=== PATIENT | male | born 1955 | race African-American/Black ===

== ENCOUNTER 2017-02-17 15:50 | Inpatient (IN) | payer MEDICAID ==
[~2017-02-17] VITALS: Ht 175.3 cm; Wt 66.7 kg
[~2017-02-17 15:50] MED LIST: ADVAIR DISKUS 51 AER INH; ALBUTEROL SULFAT0.51 NEB; ALBUTEROL SULFAT3 ML NEB; APAP/HYDROCODON1 T13 PO; ASPIR 8181 MG PO; ATI1 NG; ATI1 PO; ATROPINE; BAY PO; BG MC; CARVEDILOL12.5 M1 PO; CLINDAMYCIN HC150 MG PO; COL100 PO; DEXPF IV; FOL1 PO; HUMULIN R100 U/1 M1 SC; IPRATROPIUM BROM3 M2 HHN; LAC PO; LEVAQUIN500 MG PO; LEVOFLOXACIN500 M1 PO; MEDDP PO; MOR2I IV; NAPHAZOLINE HCL15 ML OP; NIFEDIPINE ER60 MG PO; NIT0.4 SL; NOR5 PO; PREDNISOLONE ACE5 ML OP; PREOS OU; PRI20 PO; PULMICORT0.5 MG/2 M IH; PULMICORT180 MCG/Ac INH; SOL40I IV; SPIRIVA18 MC1 INH; TEN25 PO; THI100 PO; TYL325 PO; VENTOLIN H0.09 MG/A1 IH; VITAMIN D2000 I2 PO; VITAMIN D32000 I2 PO; ZIT250 PO; ZOC10 PO; ZOCOR20 MG PO; ZOFI IV; [UNRECOGNIZED DRUG - CODE] OU; [UNRECOGNIZED DRUG - CODE] PO; [UNRECOGNIZED DRUG - OTHER]; [UNRECOGNIZED DRUG - OTHER] OP; [UNRECOGNIZED DRUG - OTHER] OU
[2017-02-17 16:28] VITALS: BP 151/96
[2017-02-17 16:38] LABS: BASOPHIL % 0.5 % (0-2); PLATELET COUNT 333 x10^3mcL (130-400)
[2017-02-17 16:42] LABS: RED CELL DISTRIBUTION WIDTH 15.6 % (11.5-14.5)
[2017-02-17 16:55] LABS: microscopic required? YES; urine erythrocyte NEGATIVE (NEGATIVE)
[2017-02-17 17:02] LABS: CALCIUM 8.4 mg/dL (8.5-10.1); CARBON DIOXIDE 23.1 mmol/L (21-32); CHLORIDE SERUM 106 mmol/L (98-107); GFR1 > 60 mL/min; GLUCOSE SERUM 169 mg/dL (74-106); POTASSIUM SERUM 4.3 mmol/L (3.5-5.1); SODIUM SERUM 140 mmol/L (136-145)
[2017-02-17 17:07] LABS: ALBUMIN 3.4 g/dL (3.4-5.0); ALKALINE PHOSPHATASE 54 U/L (46-116); ALT/SGPT 27 U/L (16-63); AST/SGOT 25 U/L (15-37); BILIRUBIN TOTAL 0.2 mg/dL (0.20-1.00); CHOLESTEROL 137 mg/dL (<200); HDL CHOLESTEROL 40 mg/dL (40-60); TOTAL PROTEIN, SERUM 6.9 g/dL (6.4-8.2)
[2017-02-17] MEDS ORDERED: PRO30 PO (17:35)
[2017-02-17 18:42] LABS: AMPHETAMINE QUAL UR NONE DETECTED (NEG <=1000)
[2017-02-17 18:50] LABS: PHOSPHOROUS 6.6 mg/dL (2.5-4.9)
[2017-02-17 18:54] LABS: CHOLESTEROL/HDL RATIO 3.6; MAGNESIUM 2.2 mg/dL (1.8-2.4)
[2017-02-17 18:55] LABS: T3 TOTAL 0.98 ng/mL
[2017-02-17 18:56] LABS: FREE T4 0.85 ng/dL (0.76-1.46); FREE THYROXINE INDEX 2.1 ug/dL (1.4-4.5); T4(THYROXINE) 6.8 ug/dL (4.7-13.3)
[2017-02-17 19:17] VITALS: BP 153/84
[2017-02-17 21:20] VITALS: BP 146/83
[2017-02-17 21:25] VITALS: BP 146/83
[2017-02-17 23:20] VITALS: BP 115/70
[2017-02-18] VITALS (18 sets, daily range): BP systolic 121–174; BP diastolic 71–83
[2017-02-18 05:42] LABS: BASOPHIL % 0.6 % (0-2); CALCIUM 8.8 mg/dL (8.5-10.1); CARBON DIOXIDE 24.4 mmol/L (21-32); CHLORIDE SERUM 111 mmol/L (98-107); CREATININE SERUM 0.7 mg/dL (0.7-1.3); GFR1 > 60 mL/min; GLUCOSE SERUM 181 mg/dL (74-106); PLATELET COUNT 327 x10^3mcL (130-400); POTASSIUM SERUM 3.8 mmol/L (3.5-5.1); RED CELL DISTRIBUTION WIDTH 15.6 % (11.5-14.5); SODIUM SERUM 144 mmol/L (136-145)
[2017-02-18] MEDS ORDERED: VITAMIN D32000 I2 PO (09:59)
[2017-02-18] MEDS ORDERED: NAPHCON A OD (10:01)
[2017-02-18] MEDS ORDERED: PRED FORTE1 ML OD (10:01)
[2017-02-18] MEDS ORDERED: STIOLTO RESPIMA1 SPR IH (10:02)
[2017-02-18] MEDS ORDERED: ROBITUSSIN COUG1 SGL PO (10:06)
[2017-02-19] VITALS (23 sets, daily range): BP systolic 102–176; BP diastolic 59–101
[2017-02-19 05:44] LABS: PLATELET COUNT 308 x10^3mcL (130-400)
[2017-02-19 05:59] LABS: RED CELL DISTRIBUTION WIDTH 14.8 % (11.5-14.5)
[2017-02-19 06:00] LABS: CALCIUM 8.6 mg/dL (8.5-10.1); CARBON DIOXIDE 24.5 mmol/L (21-32); CHLORIDE SERUM 113 mmol/L (98-107); CREATININE SERUM 0.8 mg/dL (0.7-1.3); GFR1 > 60 mL/min; GLUCOSE SERUM 192 mg/dL (74-106); MAGNESIUM 2.5 mg/dL (1.8-2.4); PHOSPHOROUS 3.5 mg/dL (2.5-4.9); POTASSIUM SERUM 3.5 mmol/L (3.5-5.1); SODIUM SERUM 146 mmol/L (136-145)
[2017-02-19 06:24] LABS: BAND NEUTROPHIL 3 % (0-10); METAMYELOCTE 2 % (0-2); MONOCYTE 4 % (0-7); SEGMENTED NEUTROPHILS 84 % (37-75)
[2017-02-19 06:25] LABS: PLATELET MORPHOLOGY FEW LARGE PLATELETS; rbc morphology (normal/abnorm) ABNORMAL (NORMAL)
[2017-02-20] VITALS (13 sets, daily range): BP systolic 107–167; BP diastolic 60–90
[2017-02-20 05:53] LABS: PLATELET COUNT 300 x10^3mcL (130-400)
[2017-02-20 05:55] LABS: BASOPHIL % 0 % (0-2); RED CELL DISTRIBUTION WIDTH 15.8 % (11.5-14.5)
[2017-02-20 05:59] LABS: CALCIUM 8.2 mg/dL (8.5-10.1); CARBON DIOXIDE 27.2 mmol/L (21-32); CHLORIDE SERUM 112 mmol/L (98-107); CREATININE SERUM 0.7 mg/dL (0.7-1.3); GFR1 > 60 mL/min; GLUCOSE SERUM 189 mg/dL (74-106); MAGNESIUM 2.4 mg/dL (1.8-2.4); PHOSPHOROUS 4.2 mg/dL (2.5-4.9); POTASSIUM SERUM 3.4 mmol/L (3.5-5.1); SODIUM SERUM 147 mmol/L (136-145)
[2017-02-21 06:08] VITALS: BP 132/70
[2017-02-21 06:21] LABS: PLATELET COUNT 317 x10^3mcL (130-400)
[2017-02-21 06:40] LABS: CALCIUM 9.5 mg/dL (8.5-10.1); CARBON DIOXIDE 29.1 mmol/L (21-32); CHLORIDE SERUM 107 mmol/L (98-107); CREATININE SERUM 0.8 mg/dL (0.7-1.3); GFR1 > 60 mL/min; GLUCOSE SERUM 174 mg/dL (74-106); MAGNESIUM 2.6 mg/dL (1.8-2.4); PHOSPHOROUS 4.6 mg/dL (2.5-4.9); POTASSIUM SERUM 4.3 mmol/L (3.5-5.1); SODIUM SERUM 146 mmol/L (136-145)
[2017-02-21 07:07] LABS: RED CELL DISTRIBUTION WIDTH 15.6 % (11.5-14.5)
[2017-02-21 08:30] VITALS: BP 133/69
[2017-02-21 09:33] LABS: BAND NEUTROPHIL 2 % (0-10); MONOCYTE 3 % (0-7); SEGMENTED NEUTROPHILS 84 % (37-75)
[2017-02-21 09:34] LABS: rbc morphology (normal/abnorm) NORMAL (NORMAL)
[2017-02-21 09:35] LABS: PLATELET MORPHOLOGY FEW LARGE PLATELETS
[2017-02-21 12:58] VITALS: BP 112/67
[2017-02-21 17:36] VITALS: BP 139/68
[2017-02-21 20:26] VITALS: BP 156/82
[2017-02-22 05:49] VITALS: BP 136/67
[2017-02-22 06:21] LABS: CALCIUM 9.7 mg/dL (8.5-10.1); CARBON DIOXIDE 28.5 mmol/L (21-32); CHLORIDE SERUM 105 mmol/L (98-107); CREATININE SERUM 0.9 mg/dL (0.7-1.3); GFR1 > 60 mL/min; GLUCOSE SERUM 166 mg/dL (74-106); SODIUM SERUM 144 mmol/L (136-145)
[2017-02-22 06:39] LABS: PLATELET COUNT 334 x10^3mcL (130-400)
[2017-02-22 07:10] LABS: RED CELL DISTRIBUTION WIDTH 15.9 % (11.5-14.5)
[2017-02-22 09:30] VITALS: BP 113/62
[2017-02-22 11:55] LABS: ATYPICAL LYMPH 1 %; BAND NEUTROPHIL 2 % (0-10); MONOCYTE 4 % (0-7); SEGMENTED NEUTROPHILS 88 % (37-75); rbc morphology (normal/abnorm) ABNORMAL (NORMAL)
[2017-02-22 11:56] LABS: PLATELET MORPHOLOGY GIANT PLATELET SEEN
[2017-02-22 17:19] VITALS: BP 139/73
[2017-02-22 21:46] VITALS: BP 102/72
[2017-02-23 06:36] VITALS: BP 130/76
[2017-02-23 10:17] VITALS: BP 133/65
[2017-02-23 17:21] VITALS: BP 136/78
[2017-02-23 21:53] VITALS: BP 110/68
[2017-02-24 06:07] VITALS: BP 120/62
[2017-02-24 06:21] LABS: PLATELET COUNT 311 x10^3mcL (130-400)
[2017-02-24 06:22] LABS: RED CELL DISTRIBUTION WIDTH 15.5 % (11.5-14.5)
[2017-02-24 06:43] LABS: CALCIUM 9.3 mg/dL (8.5-10.1); CARBON DIOXIDE 29.1 mmol/L (21-32); CHLORIDE SERUM 106 mmol/L (98-107); CREATININE SERUM 0.9 mg/dL (0.7-1.3); GFR1 > 60 mL/min; GLUCOSE SERUM 185 mg/dL (74-106); MAGNESIUM 2.6 mg/dL (1.8-2.4); PHOSPHOROUS 4.7 mg/dL (2.5-4.9); POTASSIUM SERUM 4.8 mmol/L (3.5-5.1); SODIUM SERUM 142 mmol/L (136-145)
[2017-02-24 07:57] LABS: ATYPICAL LYMPH 2 %; BAND NEUTROPHIL 0 % (0-10); BASOPHIL 0 % (0-2); MONOCYTE 4 % (0-7); SEGMENTED NEUTROPHILS 87 % (37-75)
[2017-02-24 07:58] LABS: PLATELET MORPHOLOGY PLATELETS INCREASED; rbc morphology (normal/abnorm) NORMAL (NORMAL)
[2017-02-24 08:30] VITALS: BP 146/72
[2017-02-24 12:52] VITALS: BP 127/68
[2017-02-24 13:10] VITALS: BP 146/72
[2017-02-24] MEDS ORDERED: LEVAQUIN750 MG PO (13:13)
[2017-02-24] MEDS ORDERED: LAC PO (13:13)
[2017-02-24] MEDS ORDERED: METFORMIN HCL500 MG PO (13:16)
[2017-02-24] MEDS ORDERED: SYNTHROID25 MCG PO (13:16)
[2017-02-24] MEDS ORDERED: MEDDP PO (13:17)
[2017-02-24 17:29] VITALS: BP 136/78
== END 2017-02-24 18:50 | disposition home health service (06) | DRG 137 ==
LOC: ED 15:50 → DU 18:11 → IC 18:11 → MU 18:11 → IC 18:25 → DU 02-20 23:58 → MU 02-21 16:38
PROVIDERS: Emergency Medicine; Family Medicine; ADMIT Family Medicine
PROC: 5A1945Z Respiratory Ventilation, 24-96 Consecutive Hours (ICD-10-PCS; principal; 2017-02-17)
PROC: 05HM33Z Insertion of Infusion Device into Right Internal Jugular Vein, Percutaneous Approach (ICD-10-PCS; 2017-02-17)
PROC: B543ZZA Ultrasonography of Right Jugular Veins, Guidance (ICD-10-PCS; 2017-02-17)
DX: J69.0 Pneumonitis due to inhalation of food and vomit (principal); N17.0 Acute kidney failure with tubular necrosis; J96.01 Acute respiratory failure with hypoxia; J96.02 Acute respiratory failure with hypercapnia; G72.81 Critical illness myopathy; G93.41 Metabolic encephalopathy; E87.2 Acidosis; D68.69 Other thrombophilia; E87.0 Hyperosmolality and hypernatremia; E11.51 Type 2 diabetes mellitus with diabetic peripheral angiopathy without gangrene; J44.1 Chronic obstructive pulmonary disease with (acute) exacerbation; E11.65 Type 2 diabetes mellitus with hyperglycemia; F43.22 Adjustment disorder with anxiety; K21.9 Gastro-esophageal reflux disease without esophagitis; I10 Essential (primary) hypertension; E83.51 Hypocalcemia; E78.5 Hyperlipidemia, unspecified; H54.0 Blindness, both eyes; E83.39 Other disorders of phosphorus metabolism; E03.9 Hypothyroidism, unspecified; Z79.82 Long term (current) use of aspirin; Z87.891 Personal history of nicotine dependence; Z79.51 Long term (current) use of inhaled steroids
CPT/HCPCS: 36556; 36600; 80307; 82962; 83880; 84439; 94150; 97110-GP; 97116-GP; 97530-GP; A4628; J1642; J1644; J1815; J1956; J2060; J2543; J2704; J2920; J2930; J3480; J3490; J7030; J7040; J7512; J7613; J7620; J7626; J7644; Q0092

== ENCOUNTER 2017-04-08 02:14 | Inpatient (IN) | payer MEDICAID ==
[~2017-04-08] VITALS: Ht 175.3 cm; Wt 65.0 kg
[~2017-04-08 02:14] MED LIST changes: +LEVAQUIN750 MG PO; +METFORMIN HCL500 MG PO; +NAPHCON A OD; +PRED FORTE1 ML OD; +PRO30 PO; +ROBITUSSIN COUG1 SGL PO; +STIOLTO RESPIMA1 SPR IH; +SYNTHROID25 MCG PO
--- NOTE | 2017-04-08 02:38 | NUR ---
PT TO ED WITH C/O SOB SINCE YESTERDAY. PER PT , PT WAS FEELING SOB YESTERDAY BUT FELT BETTER AND EARLIER IN THE EVENING BEGAN FEELING SOB AGAIN AND WORSENED THROUGHOUT THE EVENING AND CAME TO ED. PER PT, PT HAD BREATHING EXCERCISES DONE EARLIER TODAY. PT A&OX4,NO ACUTE DISTRESS NOTED, RESP EVEN AND LABORED AT THIS TIME WITH AUDITORY WHEEZING. PT STATES TO UNPRODUCTIVE COUGH. PT PLACED ON FULL CM, AT THE BEDSIDE, WILL CONTINUE TO MONITOR.
[2017-04-08 03:04] LABS: BASOPHIL % 0.6 % (0-2)
[2017-04-08 03:15] LABS: CALCIUM 9.5 mg/dL (8.5-10.1); CARBON DIOXIDE 21.7 mmol/L (21-32); CHLORIDE SERUM 108 mmol/L (98-107); CREATININE SERUM 0.9 mg/dL (0.7-1.3); GFR1 > 60 mL/min; GLUCOSE SERUM 111 mg/dL (74-106); POTASSIUM SERUM 3.7 mmol/L (3.5-5.1); SODIUM SERUM 143 mmol/L (136-145)
[2017-04-08 03:21] LABS: PLATELET COUNT 431 x10^3mcL (130-400)
[2017-04-08 03:26] LABS: ALBUMIN 3.9 g/dL (3.4-5.0); ALKALINE PHOSPHATASE 56 U/L (46-116); ALT/SGPT 18 U/L (16-63); AST/SGOT 15 U/L (15-37); BILIRUBIN TOTAL 0.33 mg/dL (0.20-1.00); TOTAL PROTEIN, SERUM 7.8 g/dL (6.4-8.2)
[2017-04-08 03:28] LABS: CK-MB 0.8 ng/mL (0-3.6)
[2017-04-08] MEDS ORDERED: ISOPTO ATROPINE5 ML (03:45)
[2017-04-08] MEDS ORDERED: [UNRECOGNIZED DRUG - OTHER] (03:46)
--- NOTE | 2017-04-08 03:51 | NUR ---
RT AT THE BEDSIDE.
--- NOTE | 2017-04-08 05:00 | NUR ---
PT AND PT PROVIDED WITH WARM BLANKETS AND PILLOWS FOR COMFORT WHILE WAITING TO BE ADMITTED AT THIS TIME. PT A&OX4,NO ACUTE DISTRESS NOTED, RESP EVEN AND UNLABORED, ON FULL CM WITH AT PT SIDE.
--- NOTE | 2017-04-08 06:14 | NUR ---
REPORT GIVEN TO AMADOU FLOWER TO ASSUME CARE OF PT.
--- NOTE | 2017-04-08 06:29 | NUR ---
PT TRANSFERRED TO TELE BED 217B VIA GURNEY ON CM, WITH MYSELF, KITA TOBAR, EMT MARTINE, STUDENT NURSE ABHINAV AND PT AT PT SIDE. PT A&OX4,NO ACUTE DISTRESS NOTED, RESP EVEN AND UNLABORED, TRANSFERRED WITHOUT INCIDENCE AND RECIEVING NURSE KRISTI AT THE BEDSIDE.
--- NOTE | 2017-04-08 06:33 | NUR ---
PT RECIEVED FROM ED WAS MADE COMFORTABLE IN BED,V/S STABLE. AT THE BEDSIDE AND WILL ENDORSED TO THE AM NURSE TO ADMIT THE PATIENT.
[2017-04-08 06:42] VITALS: BP 152/74
--- NOTE | 2017-04-08 06:49 | NUR ---
REG RESP NO SOB DIMINISHED TO THE BASES AND INITIATED THE ORDER OF IV @ 50 CC/HR ORDER TO THE LT AC SITE PATENT AND INTACT,NOTICE PATIENT COUGHING BUT DRY AND NON PRODUCTIVE HOB.
[2017-04-08 07:07] LABS: MAGNESIUM 2.3 mg/dL (1.8-2.4); PHOSPHOROUS 4.9 mg/dL (2.5-4.9)
[2017-04-08 07:08] LABS: CHOLESTEROL/HDL RATIO 3.8
[2017-04-08 07:18] LABS: FREE T4 1.03 ng/dL (0.76-1.46); FREE THYROXINE INDEX 2.4 ug/dL (1.4-4.5); T4(THYROXINE) 7.6 ug/dL (4.7-13.3)
[2017-04-08 07:28] VITALS: BP 152/74
[2017-04-08 07:41] VITALS: BP 147/72
--- NOTE | 2017-04-08 07:56 | NUR ---
ON FLOOR AT CHANGE OF SHIFT. BEDSIDE. ALERT AND ORIENTED. DENIES PAIN AT THIS TIME, BUT AT THE END OF THE ASSESSMENT REPORTS HAS INTERMITENT PAIN IN HIS LEFT THIGH AND ICY HOT DRESSING IN PLACE FROM HOME. BLIND IN BOTH EYES. LUNG SOUNDS WITH MINIMAL MOVEMENT OF AIR IN BOTH LOWER LOBES, WHEEZES INPIRATORY AND EXPIRATORY IN UPPER LOBES, O2 AT 2L VIA NC, NO SOB NOTED AT THIS TIME. TELE 38, HR 73. ABDOMEN SOFT, LBM YESTERDAY WAS NORMAL FOR PATIENT. DENIES DIFFICULTY WITH URINATION. SKIN INTACT. IV TO LAC NS @ 50 WNL. FALL AND ASPIRATION PRECAUTION IN PLACE. MULTIPLE REQUESTS TO EAT. REPORTS STEAY ON FEET, USES WHITE CANE ONLY DUE TO BLINDNESS. ORIENTED TO ROOM, CALL LIGHT WITHIN REACH. SPOKE WITH RT FOR RX.
[2017-04-08 08:31] LABS: T3 TOTAL 1.37 ng/mL
--- NOTE | 2017-04-08 09:09 | NUR ---
TOOK MEDS WITHOUT DIFFICULTY. ATE 100% OF BREAKFAST.
[2017-04-08] MEDS ORDERED: ISOPTO ATROPINE5 ML OU (10:59)
--- NOTE | 2017-04-08 10:59 | NUR ---
EARLIER GAVE RN TWO ADDITIONAL EYE DROPS THAT PATIENT USES AT HOME. ALSO, PREDNISOLONE EYE DROP IS OU, NOT OD. SPOKE WITH DR BAKER WHO UPDATED MAR.
[2017-04-08] MEDS ORDERED: CLEAR EYES COMP15 ML OU (11:02)
--- NOTE | 2017-04-08 12:20 | NUR ---
UA sample taken. 700 ml of urine, clear, pale normal. Pt is complaining of SOB, O2 Sat: 98% on 2 L of O2. Respiratory Therapist notified.
[2017-04-08 12:37] LABS: microscopic required? NO
[2017-04-08 12:42] LABS: UA SPECIFIC GRAVITY <=1.005 (1.005-1.035); urine erythrocyte NEGATIVE (NEGATIVE)
--- NOTE | 2017-04-08 12:58 | NUR ---
Pt verbalized that he can breather better after seeing the respiratory therapist and denies SOB. Pt eating lunch with assistance with bed at 45 degrees.
--- NOTE | 2017-04-08 13:15 | NUR ---
ATE 100% OF BREAKFAST, NO DISTRESS NOTED.
[2017-04-08 13:30] LABS: AMPHETAMINE QUAL UR NONE DETECTED (NEG <=1000)
[2017-04-08 13:55] VITALS: BP 147/80
[2017-04-08 17:18] VITALS: BP 153/72
--- NOTE | 2017-04-08 17:45 | NUR ---
BEDSIDE ASSISTING WITH DINNER SET UP, NO DISTRESS NOTED.
--- NOTE | 2017-04-08 18:47 | NUR ---
Pt resting in bed, denies SOB and pain, at bedside.
--- NOTE | 2017-04-08 20:00 | NUR ---
SEEN IN BED AWAKE.ALERT, ORIENTED X4. NO RESP DISTRESS NOTED. EXPIRATORY WHEEZE LUNG SOUND. O2 2LPM N/C MAINTAINED. BLIND IN BOTH EYES. ABLE TO USE CALL LIGHT PLACED WITHIN EASY REACH. IVF NS TO LAC INFUSING WELL AT 50ML/HR. SCD TO BLE APPLIED. PLAN OF CARE DISCUSSED. SIDERAILS UP X2.
[2017-04-08 22:00] VITALS: BP 153/80
[2017-04-09 06:01] VITALS: BP 143/74
--- NOTE | 2017-04-09 06:04 | NUR ---
NO ACUTE DISTRESS THROUGHOUT THE SHIFT. VSS. BREATHING TX GIVEN PER RT. O2 2LPM N/C REMAINED. DENIES PAIN. VOIDS VIA URINAL. IVF CONTINUED AT 50ML/HR TO LAC IV SITE.
[2017-04-09 06:27] LABS: CALCIUM 9.5 mg/dL (8.5-10.1); CARBON DIOXIDE 22.9 mmol/L (21-32); CHLORIDE SERUM 109 mmol/L (98-107); CREATININE SERUM 0.8 mg/dL (0.7-1.3); GFR1 > 60 mL/min; GLUCOSE SERUM 159 mg/dL (74-106); MAGNESIUM 2.2 mg/dL (1.8-2.4); PHOSPHOROUS 4.5 mg/dL (2.5-4.9); POTASSIUM SERUM 3.8 mmol/L (3.5-5.1); SODIUM SERUM 144 mmol/L (136-145)
[2017-04-09 06:33] LABS: BASOPHIL % 0 % (0-2); PLATELET COUNT 411 x10^3mcL (130-400); RED CELL DISTRIBUTION WIDTH 16.6 % (11.5-14.5)
--- NOTE | 2017-04-09 07:30 | NUR ---
Pt is A+Ox4, Blind in both eyes, calm, denies headache, chest pain, and nausea, Tele #[id number], pulses strong and equal bilaterally, SCD's in place, Lung sounds: Wheezing bilaterally, O2Sat: 98% on 2L NC, using I.S., abdomen soft and nontender, bowel sounds active, voiding without difficulty, uses urinal, generalized weakness, skin intact, IV in LAC with NS @50 ml/hr.
--- NOTE | 2017-04-09 08:30 | NUR ---
RT at bedside giving breathing treatment.
[2017-04-09 09:22] VITALS: BP 137/74
--- NOTE | 2017-04-09 11:29 | NUR ---
Pt resting in bed, without respiratory distress, at bedside.
[2017-04-09 13:18] VITALS: BP 137/66
--- NOTE | 2017-04-09 13:29 | NUR ---
ATE 100% OF LUNCH, NO DISTRESS NOTED. BEDSIDE.
--- NOTE | 2017-04-09 16:05 | NUR ---
Pt resting in bed, no respiratory distress, at bedside.
--- NOTE | 2017-04-09 16:20 | NUR ---
Respiratory therapist at bedside for breathing treatment.
--- NOTE | 2017-04-09 17:16 | NUR ---
Pt resting in bed, with no respiratory distress, at bedside, denies pain and nausea.
--- NOTE | 2017-04-09 18:49 | NUR ---
Pt resting in bed, denies chest pain, nausea, and SOB, at bedside.
--- NOTE | 2017-04-09 19:20 | NUR ---
SEEN RESTING IN BED, NO RESP DISTRESS ON O2 2LPM N/C, SPOSE AT BEDSIDE ASSISTING ON FEEDING. DENIES PAIN. RT PROTOCAL. I.S. AT BEDSIDE, ENCOURAGED TO USE TOLERATED WHEN AWAKE. BLIND IN BOTH EYES. STS HAD BM TODAY. VOIDS USING URINAL AT BEDSIDE. SCD TO BLE MAINTAINED. IVF NS TO LAC INFUSING WELL AT 50ML/HR. ON LEVAQUIN Q 24HRS. PLAN OF CARE DISCUSSED. CALL LIGHT PLACED WITHIN EASY REACH AND PATIENT DEMONSTRATED HOW TO USE IT APPROPRIATELY. SIDERAILS UP X2. WILL CONTINUE TO MONITOR.
[2017-04-09 20:31] VITALS: BP 150/78
--- NOTE | 2017-04-10 04:28 | NUR ---
TOOK OVER PT CARE. AAOX4. LAYING IN BED COMFORTABLY. 2L NC NOTED. NO RESP DISTRESS NOTED. DENIES PAIN. NO SIGNIFICANT CHANGES NOTED. IV INFUSING WELL. WILL CONTINUE TO MONITOR.
[2017-04-10 05:57] LABS: PLATELET COUNT 399 x10^3mcL (130-400)
[2017-04-10 06:13] VITALS: BP 147/73
[2017-04-10 06:20] LABS: CALCIUM 9.5 mg/dL (8.5-10.1); CARBON DIOXIDE 24.4 mmol/L (21-32); CHLORIDE SERUM 108 mmol/L (98-107); CREATININE SERUM 0.7 mg/dL (0.7-1.3); GFR1 > 60 mL/min; GLUCOSE SERUM 139 mg/dL (74-106); MAGNESIUM 2.2 mg/dL (1.8-2.4); PHOSPHOROUS 4.1 mg/dL (2.5-4.9); POTASSIUM SERUM 3.7 mmol/L (3.5-5.1); SODIUM SERUM 143 mmol/L (136-145)
--- NOTE | 2017-04-10 08:00 | NUR ---
AWAKE AND ALERT. PT IS VISUALLY IMPAIRED. SIGN ABOVE BED. TEMP 97.6. TELE #38 SINUS RHYTHM RATE 86. RESP 18 EVEN. BREATH SOUNDS ASCULTATE EXPIRATORY WHEEZING BILATERAL. PULSE OX 99% ON 2L NC OXYGEN. HOB ELEVATED. OCCASIONAL NON PRODUCTIVE COUGH. RT TX ORDERED. ABD SOFT, BOWEL TONES PRESENT. UP TO BATHROOM HAD BM. BACK TO BED. CALL LIGHT IN REACH. SIDE RAILS UP X2. NO EDEMA. PULSES PRESENT. SCD IN PLACE. IV PATENT LFA INFUSING NORMAL SALINE 50CC/HR. PT IS ASPIRATION/FALL PRECAUTIONS. WILL CONTINUE TO MONITOR.
[2017-04-10 08:22] LABS: BAND NEUTROPHIL 2 % (0-10); BASOPHIL 0 % (0-2); MONOCYTE 2 % (0-7); SEGMENTED NEUTROPHILS 90 % (37-75)
[2017-04-10 08:23] LABS: rbc morphology (normal/abnorm) ABNORMAL (NORMAL)
[2017-04-10 08:24] LABS: ovalocyte/elliptocyte 1+
--- NOTE | 2017-04-10 08:40 | NUR ---
DR THAKKAR AND MEDICAL TEAM IN ON ROUNDS. CHARGE NURSE AND PRIMARY NURSE PRESENT. DISCUSSED RESP STATUS AND NEED FOR CONTINUED IV ANTIBIOTICS. PT VERBALIZED UNDERSTANDING.
--- NOTE | 2017-04-10 09:15 | NUR ---
AT BEDSIDE. NEW ORDERS TO TRANSFER PT TO MED SURG STATUS. TELE REMOVED AND RETURNED TO TELE UNIT.
[2017-04-10 09:25] VITALS: BP 144/74
--- NOTE | 2017-04-10 12:15 | NUR ---
PT SLEEPING. NO DISTRESS NOTED.
--- NOTE | 2017-04-10 12:20 | NUR ---
PT AWAKE, AT BEDSIDE. IV CONTINUES PATENT. ABA=[id number]. NO RISS COVERAGE NEEDED. CALL LIGHT IN REACH.
--- NOTE | 2017-04-10 14:45 | NUR ---
METAL PATTERNMAKER IN PROCESS OF SETTING UP HOME HEALTH SERVICES. REPORTS "HE DOES NOT HAVE OXYGEN AT HOME." PULSE OX READINGS 98-99% ON OXYGEN 2L NC. OXYGEN REMOVED AT THIS TIME. WILL MONITOR PULSE OX ON RA AND FOR ANY INCREASE IN SOB.
--- NOTE | 2017-04-10 15:15 | NUR ---
PT ON ROOM AIR. AMBULATED WELL AROUND THE NURSING UNIT [facility] AND [facility] WITH GUIDE AT SIDE. TOLERATED WELL. PULSE OX RANGED BETWEEN 95-97%. NO INCREASE IN SOB. BACK TO BED. MADE COMFORTABLE. IV CONTINUES PATENT.
--- NOTE | 2017-04-10 17:30 | NUR ---
WHA=[id number]. RISS COVERAGE 3 UNITS SQ. AT BEDSIDE TO ASSIST WITH DINNER MEAL. IV CONTINUES PATENT. REMAINS ON ROOM AIR. NO RESP DISTRESS. CONTINUES WITH RT TX.
[2017-04-10 18:00] VITALS: BP 141/72
--- NOTE | 2017-04-10 19:23 | NUR ---
SHIFT REASSESSMENT DONE.PATIENT ALERT AND ORIENTED,PATIENT IS BLIND,NEEDS ANTICIPATED.ROOM AIR AT START OF THE SHIFT,BREATHING EASY.GEN WEAKNESS.FALL PRECAUTION.NS AT 50 CC/ HOUR LFA.NO TELE,MED SURG PATIENT/SKIN INTACT, AT BEDSIDE,SUPPORTIVE OF CARE.SCD INTACT,ALSO ON HEPARIN SQ.URINAL AT BEDSIDE.CALL LIGHT IN REACH.
--- NOTE | 2017-04-10 20:51 | NUR ---
SCHEDULED EYEDROPS GIVEN BOTH EYES,ALSO 3 UNITS RI 3 UNITS FOR BLOOD SUGAR 195.ALL PM MEDS GIVEN AT THIS TIME,EXCEPT FOR SOLUMEDROL,SCHEDULED AT 2200.
[2017-04-10 21:20] VITALS: BP 133/73
--- NOTE | 2017-04-10 22:52 | NUR ---
CHECKED AT INTERVALS,REMINDED TO USE CALL LIGHT FOR ASSISTANCE/BLIND.
[2017-04-11 05:41] VITALS: BP 139/77
--- NOTE | 2017-04-11 06:16 | NUR ---
AM MED GIVEN.PATIENT HEPLOCK INTACT.TELE [address] END[facility]SE TO INCOMING SHIFT.
[2017-04-11 07:14] LABS: BASOPHIL % 0.1 % (0-2); PLATELET COUNT 372 x10^3mcL (130-400)
[2017-04-11 07:45] LABS: CALCIUM 9.1 mg/dL (8.5-10.1); CARBON DIOXIDE 24.8 mmol/L (21-32); CHLORIDE SERUM 106 mmol/L (98-107); CREATININE SERUM 0.7 mg/dL (0.7-1.3); GFR1 > 60 mL/min; GLUCOSE SERUM 138 mg/dL (74-106); MAGNESIUM 2.2 mg/dL (1.8-2.4); POTASSIUM SERUM 3.7 mmol/L (3.5-5.1); SODIUM SERUM 141 mmol/L (136-145)
--- NOTE | 2017-04-11 08:00 | NUR ---
AWAKE AND ALERT. PT IS VISUALLY IMPAIRED. CALL LIGHT IN REACH. [facility] FOR SAFETY. TEMP 98. MED SURG PT. RESP 18 EVEN. BREATH SOUNDS ASCULTATE EXPIRATORY WHEEZING. NO COUGH NOTED. PULSE OX 96% RA. CONTINUES WITH RT TX ORDERED. ABD SOFT, BOWEL TONES PRESENT. LBM=5-12-17. VOIDING QS. NO EDEMA. PULSES PRESENT. SCD IN PLACE. PT ON HEPARIN SQ BID. IV PATENT LFA INFUSING NORMAL SALINE 50CC/HR. SIDE RAILS UP X2. CALL LIGHT IN REACH.
--- NOTE | 2017-04-11 08:25 | NUR ---
DR DENNY AND MEDICAL TEAM IN ON ROUNDS. ICICLE MACHINE OPERATOR, CHARGE AND PRIMARY NURSE PRESENT. DISCUSSED PLAN OF CARE, RESP TX AND HOME NEEDS. FABRIC WORKER FOREMAN WORKING ON HOME HEALTH TO FOLLOW AT HOME. PT VERBALIZED UNDERSTANDING.
[2017-04-11 09:40] VITALS: BP 148/84
[2017-04-11 10:00] VITALS: BP 152/84
[2017-04-11 11:54] VITALS: Ht 175.3 cm; Wt 65.0 kg
--- NOTE | 2017-04-11 12:30 | NUR ---
AJQ=[id number] NO RISS COVERAGE. PT ON ROOM AIR. NO RESP DISTRESS. APPETITE GOOD. WILL AMBULATE PT AFTER LUNCH. IF CONTINUES STABLE ON RA, THEN DR GARCIA PLANS TO DISCHARGE PT HOME WITH HOME HEALTH.
[2017-04-11] MEDS ORDERED: MEDDP PO (13:29)
--- NOTE | 2017-04-11 13:30 | NUR ---
PT AMBULATED WELL IN HALLWAY WITH NURSE AROUND [address] [place] ON RA. NO RESP DISTRESS. PULSE OX MAINTAINED 96-98%. BACK TO BED. DR GARCIA MADE AWARE. FOR DISCHARGE HOME TODAY. FAMILY AT BEDSIDE.
[2017-04-11] MEDS ORDERED: LEVAQUIN500 M1 PO (13:34)
[2017-04-11] MEDS ORDERED: LAC PO (13:34)
[2017-04-11] MEDS ORDERED: ALBUTEROL1.25 MG/3 NEB (15:03)
[2017-04-11 15:08] VITALS: BP 152/84
[2017-04-11] MEDS ORDERED: [UNRECOGNIZED DRUG - CODE] (15:20)
--- NOTE | 2017-04-11 16:20 | NUR ---
DR GARCIA IN TO SPEAK WITH PT, AND PT FAMILY MEMBER. DISCUSSED FOLLOWUP DR VISIT, MEDICATIONS, SCHEDULE FOR MEDS AND NEED FOR GLUCOMETER. RX GIVEN FOR GLUCOMETER AND FUTURE LABS FOR THYROID FUNCTION. VERBALIZED UNDERSTANDING OF MEDS, SCHEDULE AND INTERACTIONS WITH ANTIBIOTICS. IV REMOVED CATH TIP INTACT. PT DC VIA WHEELCHAIR WITH BELONGINGS TO PRIVATE CAR.
== END 2017-04-11 16:30 | disposition home health service (06) | DRG 140 ==
LOC: ED 02:14 → DU 05:54 → MU 04-10 09:38
PROVIDERS: Emergency Medicine; Family Medicine; ADMIT Family Medicine
DX: J44.1 Chronic obstructive pulmonary disease with (acute) exacerbation (principal); I27.2 Other secondary pulmonary hypertension; D68.69 Other thrombophilia; E11.51 Type 2 diabetes mellitus with diabetic peripheral angiopathy without gangrene; E11.65 Type 2 diabetes mellitus with hyperglycemia; I10 Essential (primary) hypertension; E78.5 Hyperlipidemia, unspecified; D64.9 Anemia, unspecified; H54.8 Legal blindness, as defined in USA; Z87.891 Personal history of nicotine dependence; I35.1 Nonrheumatic aortic (valve) insufficiency; I34.0 Nonrheumatic mitral (valve) insufficiency; I36.1 Nonrheumatic tricuspid (valve) insufficiency; D72.829 Elevated white blood cell count, unspecified; T38.0X5A Adverse effect of glucocorticoids and synthetic analogues, initial encounter; Y92.018 Other place in single-family (private) house as the place of occurrence of the external cause
CPT/HCPCS: 36600; 80307; 82962; 83880; 84439; 94150; G0480; J1644; J1956; J2920; J2930; J7030; J7613; J7620; J7626; J7644; Q0092

== ENCOUNTER 2017-08-08 10:31 | Inpatient (IN) | payer MEDICAID ==
[~2017-08-08] VITALS: Ht 175.3 cm; Wt 66.9 kg
[~2017-08-08 10:31] MED LIST changes: +ALBUTEROL1.25 MG/3 NEB; +CLEAR EYES COMP15 ML OU; +ISOPTO ATROPINE5 ML; +ISOPTO ATROPINE5 ML OU; +LEVAQUIN500 M1 PO; +[UNRECOGNIZED DRUG - CODE]; +[UNRECOGNIZED DRUG - OTHER]
[2017-08-08 12:13] LABS: microscopic required? NO
[2017-08-08 12:16] LABS: BASOPHIL % 0.4 % (0-2)
[2017-08-08 12:19] LABS: PLATELET COUNT 410 x10^3mcL (130-400); RED CELL DISTRIBUTION WIDTH 17.1 % (11.5-14.5)
[2017-08-08 12:28] LABS: CALCIUM 10.1 mg/dL (8.5-10.1); CHLORIDE SERUM 107 mmol/L (98-107); CREATININE SERUM 0.7 mg/dL (0.7-1.3); GFR1 > 60 mL/min; GLUCOSE SERUM 95 mg/dL (74-106); POTASSIUM SERUM 4.1 mmol/L (3.5-5.1); SODIUM SERUM 141 mmol/L (136-145)
[2017-08-08 12:33] LABS: ALBUMIN 3.8 g/dL (3.4-5.0); ALKALINE PHOSPHATASE 63 U/L (46-116); ALT/SGPT 17 U/L (16-63); AST/SGOT 9 U/L (15-37); BILIRUBIN TOTAL 0.35 mg/dL (0.20-1.00)
[2017-08-08 12:34] LABS: TOTAL PROTEIN, SERUM 8.4 g/dL (6.4-8.2)
[2017-08-08 12:39] LABS: UA SPECIFIC GRAVITY 1.015 (1.005-1.035); urine erythrocyte NEGATIVE (NEGATIVE)
[2017-08-08 12:44] LABS: CK-MB 0.9 ng/mL (0-3.6)
[2017-08-08 16:27] LABS: MAGNESIUM 2.5 mg/dL (1.8-2.4); PHOSPHOROUS 3.7 mg/dL (2.5-4.9)
[2017-08-08 16:29] LABS: CHOLESTEROL/HDL RATIO 4.4
[2017-08-08 16:33] LABS: T3 TOTAL 1.13 ng/mL
[2017-08-08 16:38] LABS: FREE T4 0.97 ng/dL (0.76-1.46); FREE THYROXINE INDEX 2.9 ug/dL (1.4-4.5); T4(THYROXINE) 8.8 ug/dL (4.7-13.3)
[2017-08-08 17:18] VITALS: BP 160/69
[2017-08-08 17:26] VITALS: Ht 175.3 cm; Wt 66.9 kg
[2017-08-08] MEDS ORDERED: PULMICORT180 MCG/Ac INH (18:57)
[2017-08-08 21:49] VITALS: BP 147/57
[2017-08-09 00:44] VITALS: BP 160/64
[2017-08-09 05:49] VITALS: BP 143/70
[2017-08-09 06:48] LABS: BASOPHIL % 0.5 % (0-2); PLATELET COUNT 335 x10^3mcL (130-400)
[2017-08-09 06:55] LABS: RED CELL DISTRIBUTION WIDTH 17.3 % (11.5-14.5)
[2017-08-09 08:53] VITALS: BP 127/68
[2017-08-09 08:59] LABS: AMYLASE 62 U/L (25-115); CALCIUM 9.8 mg/dL (8.5-10.1); CARBON DIOXIDE 19.8 mmol/L (21-32); CHLORIDE SERUM 106 mmol/L (98-107); CREATININE SERUM 0.8 mg/dL (0.7-1.3); GFR1 > 60 mL/min; GLUCOSE SERUM 126 mg/dL (74-106); MAGNESIUM 2.3 mg/dL (1.8-2.4); POTASSIUM SERUM 4.3 mmol/L (3.5-5.1); SODIUM SERUM 142 mmol/L (136-145)
[2017-08-09 13:14] VITALS: BP 129/69
[2017-08-09 16:53] VITALS: BP 129/61
[2017-08-09 20:44] VITALS: BP 144/74
[2017-08-10 06:01] VITALS: BP 140/72
[2017-08-10 06:51] LABS: BASOPHIL % 0.3 % (0-2); PLATELET COUNT 362 x10^3mcL (130-400)
[2017-08-10 06:53] LABS: RED CELL DISTRIBUTION WIDTH 17.4 % (11.5-14.5)
[2017-08-10 07:08] LABS: CALCIUM 9.7 mg/dL (8.5-10.1); CARBON DIOXIDE 25.1 mmol/L (21-32); CHLORIDE SERUM 105 mmol/L (98-107); CREATININE SERUM 0.8 mg/dL (0.7-1.3); GFR1 > 60 mL/min; GLUCOSE SERUM 111 mg/dL (74-106); SODIUM SERUM 139 mmol/L (136-145)
[2017-08-10 07:40] VITALS: BP 117/66
[2017-08-10 13:27] VITALS: BP 130/79
[2017-08-10 16:52] VITALS: BP 139/70
[2017-08-10 20:46] VITALS: BP 124/68
[2017-08-11 05:24] VITALS: BP 129/67
[2017-08-11 06:32] LABS: CALCIUM 9.9 mg/dL (8.5-10.1); CARBON DIOXIDE 25.1 mmol/L (21-32); CHLORIDE SERUM 102 mmol/L (98-107); CREATININE SERUM 0.8 mg/dL (0.7-1.3); GFR1 > 60 mL/min; GLUCOSE SERUM 118 mg/dL (74-106); POTASSIUM SERUM 3.9 mmol/L (3.5-5.1); SODIUM SERUM 136 mmol/L (136-145)
[2017-08-11 07:00] VITALS: BP 123/68
[2017-08-11 10:30] VITALS: BP 123/67
[2017-08-11 12:40] VITALS: BP 134/71
[2017-08-11 22:17] VITALS: BP 150/73
[2017-08-12 06:12] VITALS: BP 124/64
[2017-08-12 09:23] VITALS: BP 132/68
[2017-08-12 16:59] VITALS: BP 152/73
[2017-08-12 21:01] VITALS: BP 127/63
[2017-08-13 05:27] VITALS: BP 125/67
[2017-08-13 07:36] LABS: BASOPHIL % 0.6 % (0-2); PLATELET COUNT 378 x10^3mcL (130-400)
[2017-08-13 07:42] LABS: RED CELL DISTRIBUTION WIDTH 16.6 % (11.5-14.5)
[2017-08-13 10:59] VITALS: BP 124/70
[2017-08-13 17:37] VITALS: BP 141/75
[2017-08-13 21:39] VITALS: BP 156/72
[2017-08-14 05:30] VITALS: BP 131/71
[2017-08-14 09:15] VITALS: BP 141/66
[2017-08-14 15:02] VITALS: BP 141/66
[2017-08-14 16:45] VITALS: BP 111/58
[2017-08-14 22:54] VITALS: BP 115/60
[2017-08-15 05:55] VITALS: BP 120/70
[2017-08-15 09:56] VITALS: BP 126/65
[2017-08-15 18:17] VITALS: BP 119/51
[2017-08-15 21:34] VITALS: BP 149/69
[2017-08-16 05:34] VITALS: BP 128/74
[2017-08-16 09:45] VITALS: BP 138/72
[2017-08-16 14:08] VITALS: BP 145/69
[2017-08-16 18:06] VITALS: BP 154/73
[2017-08-16 20:58] VITALS: BP 145/74
[2017-08-17 04:52] VITALS: BP 131/70
[2017-08-17 08:37] VITALS: BP 137/68
[2017-08-17] MEDS ORDERED: METHOCARBAMOL500 MG PO (14:15)
[2017-08-17] MEDS ORDERED: ELA10 PO (14:17)
[2017-08-17] MEDS ORDERED: COREG12.5 MG PO (14:18)
[2017-08-17] MEDS ORDERED: MIRUD PO (14:19)
[2017-08-17] MEDS ORDERED: APAP/OXYCODONE1 TA4 PO (14:22)
[2017-08-17 16:27] VITALS: BP 137/68
== END 2017-08-17 17:50 | disposition home health service (06) | DRG 143 ==
LOC: ED 10:31 → DU 15:36 → MU 15:36 → DU 16:55 → MU 08-11 10:06
PROVIDERS: Emergency Medicine; Family Medicine; Internal Medicine; ADMIT Family Medicine
PROC: 0BB48ZX Excision of Right Upper Lobe Bronchus, Via Natural or Artificial Opening Endoscopic, Diagnostic (ICD-10-PCS; principal; 2017-08-11 13:00)
PROC: 0H98XZX Drainage of Buttock Skin, External Approach, Diagnostic (ICD-10-PCS; 2017-08-14)
DX: D14.31 Benign neoplasm of right bronchus and lung (principal); J96.00 Acute respiratory failure, unspecified whether with hypoxia or hypercapnia; J44.1 Chronic obstructive pulmonary disease with (acute) exacerbation; C79.2 Secondary malignant neoplasm of skin; E11.65 Type 2 diabetes mellitus with hyperglycemia; E83.41 Hypermagnesemia; J98.11 Atelectasis; M16.12 Unilateral primary osteoarthritis, left hip; M47.894 Other spondylosis, thoracic region; I10 Essential (primary) hypertension; H54.0 Blindness, both eyes; E03.9 Hypothyroidism, unspecified; Z68.21 Body mass index [BMI] 21.0-21.9, adult
CPT/HCPCS: 49180; 82962; 83880; 84439; 85378; 88344; 94150; 97110-GP; 97116-GP; 97530-GP; J0330; J1885; J2001; J2270; J2405; J2543; J2704; J3010; J3535; J7030; J7120; J7620; J7626; Q0092; Q9967

== ENCOUNTER 2017-10-21 12:46 | Inpatient (IN) | payer MEDICAID ==
[~2017-10-21] VITALS: Ht 175.3 cm; Wt 55.9 kg
[~2017-10-21 12:46] MED LIST changes: +APAP/OXYCODONE1 TA4 PO; +COREG12.5 MG PO; +ELA10 PO; +METHOCARBAMOL500 MG PO; +MIRUD PO
[2017-10-21 14:31] LABS: BASOPHIL % 0.4 % (0-2)
[2017-10-21 14:32] LABS: PLATELET COUNT 486 x10^3mcL (130-400); RED CELL DISTRIBUTION WIDTH 16.5 % (11.5-14.5)
[2017-10-21 14:44] LABS: BILIRUBIN TOTAL 0.4 mg/dL (0.20-1.00); CARBON DIOXIDE 28.7 mmol/L (21-32); CREATININE SERUM 1.9 mg/dL (0.7-1.3); POTASSIUM SERUM 3.5 mmol/L (3.5-5.1)
[2017-10-21 14:45] LABS: ALBUMIN 2.5 g/dL (3.4-5.0); TOTAL PROTEIN, SERUM 8.7 g/dL (6.4-8.2)
[2017-10-21 15:13] LABS: CALCIUM 15.3 mg/dL (8.5-10.1)
[2017-10-21 16:49] LABS: MAGNESIUM 2.6 mg/dL (1.8-2.4); PHOSPHOROUS 2.3 mg/dL (2.5-4.9)
[2017-10-21 16:54] LABS: CHOLESTEROL/HDL RATIO 3.7
[2017-10-21 16:58] LABS: FREE T4 1.16 ng/dL (0.76-1.46); T3 TOTAL 0.58 ng/mL; T4(THYROXINE) 7.8 ug/dL (4.7-13.3)
[2017-10-21 17:36] VITALS: BP 137/70
[2017-10-21 19:15] VITALS: BP 137/70
[2017-10-21 19:32] VITALS: BP 132/66
[2017-10-21 20:58] VITALS: BP 153/69
[2017-10-22] VITALS (14 sets, daily range): BP systolic 104–162; BP diastolic 67–80
[2017-10-22 06:32] LABS: microscopic required? NO
[2017-10-22 06:36] LABS: CARBON DIOXIDE 25.6 mmol/L (21-32); CREATININE SERUM 1.5 mg/dL (0.7-1.3); POTASSIUM SERUM 3.5 mmol/L (3.5-5.1)
[2017-10-22 06:42] LABS: CALCIUM 14.4 mg/dL (8.5-10.1)
[2017-10-22 06:53] LABS: BASOPHIL % 0.2 % (0-2)
[2017-10-22 06:54] LABS: PLATELET COUNT 404 x10^3mcL (130-400); RED CELL DISTRIBUTION WIDTH 16.1 % (11.5-14.5)
[2017-10-22 07:38] LABS: AMPHETAMINE QUAL UR NONE DETECTED (NEG <=1000)
[2017-10-22 07:40] LABS: UA SPECIFIC GRAVITY 1.015 (1.005-1.035); urine erythrocyte NEGATIVE (NEGATIVE)
[2017-10-22] MEDS ORDERED: NAPHCON A OP (20:07)
[2017-10-22] MEDS ORDERED: PREDNISOLONE ACE5 ML OU (20:07)
[2017-10-22] MEDS ORDERED: ISOPTO ATROPINE5 ML OP (20:07)
[2017-10-23 05:46] VITALS: BP 148/67
[2017-10-23 06:40] LABS: BASOPHIL % 0.2 % (0-2); PLATELET COUNT 396 x10^3mcL (130-400)
[2017-10-23 07:03] LABS: RED CELL DISTRIBUTION WIDTH 16.1 % (11.5-14.5)
[2017-10-23 07:05] LABS: CALCIUM 12.1 mg/dL (8.5-10.1); CARBON DIOXIDE 25.7 mmol/L (21-32); CREATININE SERUM 1.3 mg/dL (0.7-1.3); PHOSPHOROUS 2.1 mg/dL (2.5-4.9); POTASSIUM SERUM 3.1 mmol/L (3.5-5.1)
[2017-10-23 09:30] VITALS: BP 155/69
[2017-10-23 14:13] VITALS: BP 141/66
[2017-10-23 17:14] VITALS: BP 151/66
[2017-10-23 20:28] VITALS: BP 141/69
[2017-10-24 05:43] VITALS: BP 145/74
[2017-10-24 07:32] LABS: BASOPHIL % 0.1 % (0-2)
[2017-10-24 07:37] LABS: CALCIUM 11.4 mg/dL (8.5-10.1); CARBON DIOXIDE 23.9 mmol/L (21-32); CHLORIDE SERUM 103 mmol/L (98-107); CREATININE SERUM 1.2 mg/dL (0.7-1.3); GFR1 > 60 mL/min; GLUCOSE SERUM 137 mg/dL (74-106); PHOSPHOROUS 1.6 mg/dL (2.5-4.9); POTASSIUM SERUM 3.2 mmol/L (3.5-5.1); SODIUM SERUM 137 mmol/L (136-145)
[2017-10-24 07:49] LABS: PLATELET COUNT 418 x10^3mcL (130-400); RED CELL DISTRIBUTION WIDTH 16.2 % (11.5-14.5)
[2017-10-24 09:16] VITALS: BP 144/76
[2017-10-24 12:06] VITALS: Ht 175.3 cm; Wt 55.9 kg
[2017-10-24 13:00] VITALS: BP 117/68
[2017-10-24 18:16] VITALS: BP 146/71
[2017-10-24 20:35] VITALS: BP 137/71
[2017-10-25 05:15] VITALS: BP 122/63
[2017-10-25 07:15] LABS: BASOPHIL % 0.4 % (0-2)
[2017-10-25 07:42] LABS: CALCIUM 9.9 mg/dL (8.5-10.1); CARBON DIOXIDE 22.9 mmol/L (21-32); CHLORIDE SERUM 105 mmol/L (98-107); CREATININE SERUM 1.2 mg/dL (0.7-1.3); GFR1 > 60 mL/min; GLUCOSE SERUM 120 mg/dL (74-106); MAGNESIUM 1.8 mg/dL (1.8-2.4); PHOSPHOROUS 1.8 mg/dL (2.5-4.9); SODIUM SERUM 138 mmol/L (136-145)
[2017-10-25 07:45] LABS: PLATELET COUNT 401 x10^3mcL (130-400); RED CELL DISTRIBUTION WIDTH 16.1 % (11.5-14.5)
[2017-10-25 10:05] VITALS: BP 127/69
[2017-10-25 12:13] VITALS: BP 127/69
[2017-10-25 14:22] VITALS: BP 128/63
[2017-10-25 17:24] VITALS: BP 116/67
[2017-10-25 20:56] VITALS: BP 116/65
[2017-10-26 05:53] VITALS: BP 136/69
[2017-10-26 06:05] LABS: BASOPHIL % 0.1 % (0-2)
[2017-10-26 06:09] LABS: CALCIUM 9.1 mg/dL (8.5-10.1); CARBON DIOXIDE 23.2 mmol/L (21-32); CHLORIDE SERUM 106 mmol/L (98-107); CREATININE SERUM 1.1 mg/dL (0.7-1.3); GFR1 > 60 mL/min; GLUCOSE SERUM 101 mg/dL (74-106); MAGNESIUM 1.6 mg/dL (1.8-2.4); POTASSIUM SERUM 4.4 mmol/L (3.5-5.1); SODIUM SERUM 139 mmol/L (136-145)
[2017-10-26 06:15] LABS: PLATELET COUNT 418 x10^3mcL (130-400)
[2017-10-26 09:48] VITALS: BP 141/59
[2017-10-26 16:31] VITALS: BP 118/87
[2017-10-26 21:44] VITALS: BP 121/63
[2017-10-27 06:16] VITALS: BP 125/62
[2017-10-27 07:10] LABS: BASOPHIL % 0.3 % (0-2)
[2017-10-27 07:15] LABS: CALCIUM 8.9 mg/dL (8.5-10.1); CARBON DIOXIDE 23.6 mmol/L (21-32); CHLORIDE SERUM 107 mmol/L (98-107); CREATININE SERUM 1.1 mg/dL (0.7-1.3); GFR1 > 60 mL/min; GLUCOSE SERUM 108 mg/dL (74-106); MAGNESIUM 1.5 mg/dL (1.8-2.4); PHOSPHOROUS 2.4 mg/dL (2.5-4.9); POTASSIUM SERUM 3.7 mmol/L (3.5-5.1); SODIUM SERUM 140 mmol/L (136-145)
[2017-10-27 07:23] LABS: PLATELET COUNT 492 x10^3mcL (130-400); RED CELL DISTRIBUTION WIDTH 16.1 % (11.5-14.5)
[2017-10-27 10:29] VITALS: BP 139/75
[2017-10-27 17:48] VITALS: BP 111/60
[2017-10-27 21:03] VITALS: BP 129/70
[2017-10-28 06:46] VITALS: BP 125/80
[2017-10-28 07:07] LABS: MAGNESIUM 1.9 mg/dL (1.8-2.4); PHOSPHOROUS 2.4 mg/dL (2.5-4.9)
[2017-10-28 07:09] LABS: BASOPHIL % 0 % (0-2); PLATELET COUNT 476 x10^3mcL (130-400); RED CELL DISTRIBUTION WIDTH 16.4 % (11.5-14.5)
[2017-10-28 08:30] VITALS: BP 119/63
[2017-10-28 14:14] VITALS: BP 119/63
[2017-10-28 17:26] VITALS: BP 116/62
[2017-10-28 19:25] VITALS: BP 108/70
[2017-10-29 05:56] VITALS: BP 116/67
[2017-10-29 07:40] VITALS: BP 122/65
[2017-10-29 09:43] VITALS: BP 123/67
[2017-10-29 13:26] VITALS: BP 123/67
== END 2017-10-29 13:45 | disposition home health service (06) | DRG 143 ==
LOC: ED 12:46 → DU 15:19 → MU 15:19 → DU 17:09 → MU 10-25 09:10
PROVIDERS: Emergency Medicine; Family Medicine; ADMIT Family Medicine
PROC: 0W9930Z Drainage of Right Pleural Cavity with Drainage Device, Percutaneous Approach (ICD-10-PCS; principal; 2017-10-22)
DX: J93.11 Primary spontaneous pneumothorax (principal); N17.0 Acute kidney failure with tubular necrosis; E43 Unspecified severe protein-calorie malnutrition; C79.51 Secondary malignant neoplasm of bone; D68.69 Other thrombophilia; C34.01 Malignant neoplasm of right main bronchus; E83.39 Other disorders of phosphorus metabolism; E11.51 Type 2 diabetes mellitus with diabetic peripheral angiopathy without gangrene; E11.65 Type 2 diabetes mellitus with hyperglycemia; E83.52 Hypercalcemia; J44.9 Chronic obstructive pulmonary disease, unspecified; D63.8 Anemia in other chronic diseases classified elsewhere; E87.6 Hypokalemia; H54.8 Legal blindness, as defined in USA; M54.30 Sciatica, unspecified side; Z68.1 Body mass index [BMI] 19.9 or less, adult; E02 Subclinical iodine-deficiency hypothyroidism; K76.9 Liver disease, unspecified
CPT/HCPCS: 36600; 82962; 83880; 84439; 92526-GN; 92610-GN; C1729; C1751; J0630; J0696; J1170; J2001; J2430; J3010; J3475; J3480; J3490; J7030; J7613; J7620; J7644; Q0092; Q0161

== ENCOUNTER 2018-07-31 13:10 | Inpatient (IN) | payer MEDICAID, MEDICARE ==
[~2018-07-31] VITALS: Ht 175.3 cm; Wt 40.4 kg
[~2018-07-31 13:10] MED LIST changes: +ISOPTO ATROPINE5 ML OP; +NAPHCON A OP; +PREDNISOLONE ACE5 ML OU
[2018-07-31 13:17] VITALS: Ht 175.3 cm; Wt 40.4 kg
[2018-07-31 14:01] LABS: BASOPHIL % 0 % (0-2); PLATELET COUNT 485 x10^3mcL (130-400); RED CELL DISTRIBUTION WIDTH 19.6 % (11.5-14.5)
[2018-07-31 14:22] LABS: ALKALINE PHOSPHATASE 107 U/L (46-116); ALT/SGPT 10 U/L (16-63); AST/SGOT 15 U/L (15-37); BILIRUBIN TOTAL 0.4 mg/dL (0.20-1.00); CARBON DIOXIDE 23.5 mmol/L (21-32); CHLORIDE SERUM 105 mmol/L (98-107); CREATININE SERUM 0.7 mg/dL (0.7-1.3); GFR1 > 60 mL/min; GLUCOSE SERUM 90 mg/dL (74-106); POTASSIUM SERUM 3.5 mmol/L (3.5-5.1); SODIUM SERUM 138 mmol/L (136-145)
[2018-07-31 14:24] LABS: FREE T4 1.36 ng/dL (0.76-1.46); FREE THYROXINE INDEX 2.7 ug/dL (1.4-4.5); T4(THYROXINE) 8.3 ug/dL (4.7-13.3)
[2018-07-31 14:45] LABS: ALBUMIN 2.1 g/dL (3.4-5.0)
[2018-07-31 14:46] LABS: C REACTIVE PROTEIN 24.2 mg/dL (<=0.9); CALCIUM 13.3 mg/dL (8.5-10.1)
[2018-07-31 15:01] LABS: T3 TOTAL 0.47 ng/mL
[2018-07-31 15:02] LABS: CK-MB 0.7 ng/mL (0-3.6)
[2018-07-31 15:24] LABS: ERYTHROCYTE SED RATE 112 mm/hr (0-20)
[2018-07-31 16:04] LABS: MAGNESIUM 2.3 mg/dL (1.8-2.4); PHOSPHOROUS 2.5 mg/dL (2.5-4.9)
[2018-07-31 16:07] LABS: CHOLESTEROL/HDL RATIO 4.6
[2018-07-31] MEDS ORDERED: COLACE100 MG PO (17:05)
[2018-07-31] MEDS ORDERED: PREDNISOLONE ACE5 ML OU ×2 (17:07→18:54)
[2018-07-31] MEDS ORDERED: MEGACE PO (17:08)
[2018-07-31] MEDS ORDERED: SPIRIVA18 MC1 INH (17:10)
[2018-07-31] MEDS ORDERED: CYCLOGYL2 ML OU (17:11)
[2018-07-31] MEDS ORDERED: VENTOLIN H0.09 MG/A1 (17:12)
[2018-07-31 17:53] LABS: microscopic required? YES; urine erythrocyte TRACE (NEGATIVE)
[2018-07-31 18:07] VITALS: BP 125/60
[2018-07-31] MEDS ORDERED: COREG12.5 MG PO (18:53)
[2018-07-31 20:45] VITALS: BP 103/52
[2018-07-31 21:09] VITALS: BP 103/52
[2018-08-01 05:02] VITALS: BP 123/70
[2018-08-01 05:42] LABS: CARBON DIOXIDE 21.3 mmol/L (21-32); CHLORIDE SERUM 109 mmol/L (98-107); CREATININE SERUM 0.6 mg/dL (0.7-1.3); GFR1 > 60 mL/min; GLUCOSE SERUM 117 mg/dL (74-106); POTASSIUM SERUM 3.2 mmol/L (3.5-5.1); SODIUM SERUM 144 mmol/L (136-145)
[2018-08-01 07:00] LABS: BASOPHIL % 0.2 % (0-2); PLATELET COUNT 395 x10^3mcL (130-400); RED CELL DISTRIBUTION WIDTH 19.7 % (11.5-14.5)
[2018-08-01 09:02] VITALS: BP 134/73
[2018-08-01 17:03] VITALS: BP 130/72
[2018-08-01 21:29] VITALS: BP 136/73
[2018-08-02 04:46] VITALS: BP 151/77
[2018-08-02 07:04] LABS: BASOPHIL % 0.5 % (0-2)
[2018-08-02 07:09] LABS: CALCIUM 12.1 mg/dL (8.5-10.1); CARBON DIOXIDE 21.9 mmol/L (21-32); CHLORIDE SERUM 111 mmol/L (98-107); CREATININE SERUM 0.6 mg/dL (0.7-1.3); GFR1 > 60 mL/min; GLUCOSE SERUM 104 mg/dL (74-106); PHOSPHOROUS 2.4 mg/dL (2.5-4.9); POTASSIUM SERUM 3.2 mmol/L (3.5-5.1); SODIUM SERUM 143 mmol/L (136-145)
[2018-08-02 07:11] LABS: PLATELET COUNT 380 x10^3mcL (130-400)
[2018-08-02 07:27] LABS: RED CELL DISTRIBUTION WIDTH 18.3 % (11.5-14.5)
[2018-08-02 09:06] VITALS: BP 110/56
[2018-08-02 13:40] VITALS: BP 114/64
[2018-08-02 16:53] VITALS: BP 125/55
[2018-08-02 20:47] VITALS: BP 152/74
[2018-08-03 05:23] VITALS: BP 135/78
[2018-08-03 07:28] LABS: CALCIUM 12.6 mg/dL (8.5-10.1); CARBON DIOXIDE 17.5 mmol/L (21-32); CHLORIDE SERUM 112 mmol/L (98-107); CREATININE SERUM 0.6 mg/dL (0.7-1.3); GFR1 > 60 mL/min; GLUCOSE SERUM 108 mg/dL (74-106); MAGNESIUM 2.2 mg/dL (1.8-2.4); PHOSPHOROUS 3.3 mg/dL (2.5-4.9); POTASSIUM SERUM 3.9 mmol/L (3.5-5.1); SODIUM SERUM 139 mmol/L (136-145)
[2018-08-03 07:29] LABS: PLATELET COUNT 295 x10^3mcL (130-400)
[2018-08-03 07:30] LABS: RED CELL DISTRIBUTION WIDTH 19.6 % (11.5-14.5)
[2018-08-03 09:38] VITALS: BP 98/49
[2018-08-03 10:40] LABS: ATYPICAL LYMPH 1 %; BAND NEUTROPHIL 5 % (0-10); BASOPHIL 0 % (0-2); MONOCYTE 1 % (0-7); SEGMENTED NEUTROPHILS 92 % (37-75)
[2018-08-03 10:42] LABS: PLATELET MORPHOLOGY PLATELETS INCREASED; rbc morphology (normal/abnorm) ABNORMAL (NORMAL)
[2018-08-03 13:06] VITALS: BP 100/45
[2018-08-03 13:33] VITALS: BP 100/45
[2018-08-03 14:54] LABS: UA SPECIFIC GRAVITY 1.025 (1.005-1.035); microscopic required? YES; urine erythrocyte NEGATIVE (NEGATIVE)
[2018-08-03 17:37] VITALS: BP 116/65
[2018-08-03 20:27] VITALS: BP 100/48
[2018-08-04 05:31] VITALS: BP 114/54
[2018-08-04] MEDS ORDERED: LEV500 PO (09:30)
[2018-08-04] MEDS ORDERED: CLE150 PO (09:33)
[2018-08-04] MEDS ORDERED: MYCLUD SS (09:34)
[2018-08-04 09:39] VITALS: BP 107/55
[2018-08-04 10:13] VITALS: BP 107/55
== END 2018-08-04 12:48 | disposition hospice, home (50) | DRG 136 ==
LOC: ED 13:10 → MU 15:33 → DU 15:33 → MU 17:42 → DU 08-01 21:35
PROVIDERS: Internal Medicine; Specialist
DX: C34.90 Malignant neoplasm of unspecified part of unspecified bronchus or lung (principal); N17.0 Acute kidney failure with tubular necrosis; E43 Unspecified severe protein-calorie malnutrition; J18.9 Pneumonia, unspecified organism; E86.0 Dehydration; R62.7 Adult failure to thrive; E87.6 Hypokalemia; I10 Essential (primary) hypertension; D64.9 Anemia, unspecified; J44.9 Chronic obstructive pulmonary disease, unspecified; H54.8 Legal blindness, as defined in USA; R80.9 Proteinuria, unspecified; Z68.1 Body mass index [BMI] 19.9 or less, adult; Z87.891 Personal history of nicotine dependence
CPT/HCPCS: 36600; 82962; 83880; 84439; 94150; J1956; J2920; J3490; J3535; J7030; J7042; J7512; J7620; Q0092